=== PATIENT | male | born 1990 | race Two or more races ===

== ENCOUNTER 2018-09-04 18:01 | Emergency (ER) | payer MEDICAID ==
[~2018-09-04] VITALS: Ht 177.8 cm; Wt 90.7 kg
[2018-09-04 19:30] VITALS: BP 109/59
[2018-09-04] MEDS ORDERED: TETANUS-DIPTH-ACEL PERTUSSIS 0.5ML SYRG IM ONE (19:45)
[2018-09-04] MEDS ORDERED: cefTRIAXone SOD 1,000 MG VL IM ONE (19:45)
[2018-09-04] MEDS ORDERED: AMOXICILLIN/CLAVUL 875 MG TAB PO ONE (20:00)
[2018-09-04] MEDS ORDERED: LIDOCAINE W/ EPINEPHRINE 2% INJ 20ML VIAL IJ ONE (20:15)
== END 2018-09-04 22:53 | disposition home or self-care (01) ==
LOC: ER 18:05
DX: S61.213A Laceration without foreign body of left middle finger without damage to nail, initial encounter (principal); S61.215A Laceration without foreign body of left ring finger without damage to nail, initial encounter; Z53.21 Procedure and treatment not carried out due to patient leaving prior to being seen by health care provider; W54.0XXA Bitten by dog, initial encounter; Y93.89 Activity, other specified; Y99.8 Other external cause status; Y92.89 Other specified places as the place of occurrence of the external cause
CPT/HCPCS: 73120; 90471; 90715; 96372; 99283; J0696

== ENCOUNTER 2020-05-25 14:43 | Emergency (ER) | payer MEDICAID ==
[~2020-05-25] VITALS: Ht 180.3 cm; Wt 77.1 kg
[2020-05-25 15:16] VITALS: BP 127/75
[2020-05-25] MEDS ORDERED: cefTRIAXone SOD 1,000 MG VL IM ONE (17:00)
[2020-05-25] MEDS ORDERED: DOXYCYCLINE 100 MG TAB/CAP PO ONE (17:00)
[2020-05-25] MEDS ORDERED: LIDOCAINE 1% HCL (LOCAL ANESTH.) INJ 20ML MDV ONE (17:24)
== END 2020-05-25 17:58 | disposition home or self-care (01) ==
LOC: ER 14:43
DX: U07.1 COVID-19 (principal)
CPT/HCPCS: 36415; 71045; 87426; 96372; 99284; J0696; J2001